=== PATIENT | female | born 1990 | race Caucasian/White ===

== ENCOUNTER 2018-03-14 01:19 | Emergency (ER) | payer OTHER, SELFPAY ==
[2018-03-14 01:32] VITALS: BP 120/80; PULSE 78; RESP 18; TEMP 36.5; O2SAT 99; BMI 28.1
[2018-03-14] MEDS: TRIMETH/SULFA 160/800 (DS) TABLET 1 TAB PO (01:40)
[2018-03-14 01:55] LABS: Bacteria Urine Few (2-10); RBC Urine 0-1/HPF (0-5/HPF); Squamous Epithelial Cell Urine 0-1 /HPF; WBC Urine 0-1/HPF (0-5/HPF)
[2018-03-14 01:56] LABS: Culture Indicated Urine Specimen Cultured
[2018-03-14] MEDS: PHENAZOPYRIDINE 100 MG PREPACK 1 BOTTLE MISC (02:03)
--- NOTE | 2018-03-14 05:39 | ED.FEMALEGU ---
HPI - Female Genitourinary General Chief complaint: Urogenital-Female Stated complaint: thinks has UTI Time Seen by Provider: 03/14/18 01:31 Source: patient Mode of arrival: ambulatory Limitations: no limitations History of Present Illness HPI Narrative: 27-year-old female, nonsmoker otherwise healthy presents with her mother and a chief complaint symptoms consistent with UTI, which she has previously had. She complains of dysuria, frequency and urgency. She denies any back pain nor fever or chills. She has no nausea, vomiting or other systemic finding. She has had UTIs in the past and states this feels similar with those MD Complaint: dysuria and UTI Onset (ago): hour(s) Location: suprapubic Severity: mild Quality: Aching and Burning Duration: constant Relieving factors: none Exacerbating factors: none Urinary symptoms: Difficulty Urinating, Dysuria and Urgency Patient : No Associated symptoms: denies other symptoms Related Data Previous Rx's Medication Instructions Recorded sulfamethoxazole-trimethoprim 1 tab PO BID 5 Days #10 tab 03/14/18 [Bactrim DS] Allergies Allergy/AdvReac Type Severity Reaction Status Date / Time amoxicillin Allergy Mild Verified 03/14/18 01:39 Review of Systems Review of Systems All systems reviewed & are unremarkable except as noted in HPI and below Constitutional Denies chills, Denies fever(s), Denies lethargy and Denies weakness Eyes Denies change in vision, Denies eye discharge, Denies irritation and Denies loss of vision ENT Ears, Nose, Mouth, and Throat: Denies change in voice, Denies neck pain and Denies sore throat Cardiovascular Denies chest pain, Denies irregular heart rhythm, Denies lightheadedness, Denies palpitations, Denies dyspnea, Denies dyspnea on exertion and Denies orthopnea Respiratory Denies cough, Denies dyspnea, Denies dyspnea on exertion and Denies wheezing Gastrointestinal Gastrointestinal: Denies abdominal pain, Denies change in bowel habits, Denies diarrhea, Denies nausea and Denies vomiting Genitourinary Denies hematuria, Reports dysuria, Denies flank pain, Denies urinary incontinence and Reports urinary urgency Musculoskeletal Denies neck pain Integumentary/Breasts Denies pruritus, Denies erythema, Denies rash and Denies wounds Neurologic Denies confusion, Denies loss of vision and Denies weakness Psychiatric Denies anxiety, Denies confusion, Denies depression, Denies homicidal ideation and Denies suicidal ideation Endocrine Denies palpitations Hematologic/Lymphatic Denies easy bruising Allergic/Immunologic Denies wheezing PFSH Social History Smoking Status: Never smoker Exam Narrative Exam Narrative: GEN: AOx3 and in mild distress EYES: Pupils are equal, round, and reactive to light and accommodation. Extraoccular muscles are intact bilaterally. There is no subconjunctival hemorrhage or exudate. CHEST: Lungs are clear to auscultation bilaterally and free of wheezes, rales, or rhonchi. Heart rate is regular rhythm, there are no murmurs, clicks, rubs, or gallops. There is no chest wall tenderness. ABD: Abdomen is soft and nontender. There is no guarding or rebound. Bowel sounds are normal in all 4 quadrants. There is no mass or organomegaly. EXT: Full painless ROM of all extremities with no loss of sensation or strength. SKIN: Warm, pink, and dry. No erythema or rash Initial Vital Signs Initial Vital Signs: Vital Signs Temperature 97.7 F 03/14/18 01:32 Pulse Rate 78 03/14/18 01:32 Respiratory Rate 18 03/14/18 01:32 Blood Pressure 120/80 03/14/18 01:32 Pulse Oximetry 99 03/14/18 01:32 Course Orders Ordered: ED Orders 03/14/18 01:38 Urine Culture Stat Urine Microscopic Stat Discontinued Medications Phenazopyridine HCl (Pyridium 100mg Prepack) 1 bottle MISC SEEINSTR ONE Stop: 03/14/18 02:02 Last Admin: 03/14/18 02:03 Dose: 1 bottle Trimethoprim/Sulfamethoxazole (Bactrim Ds) 1 tab PO NOW ONE Stop: 03/14/18 01:32 Last Admin: 03/14/18 01:40 Dose: 1 tab Vital Signs - 8 hr 03/14/18 01:32 Temperature 97.7 F Pulse Rate 78 Respiratory Rate 18 Blood Pressure 120/80 Pulse Oximetry 99 MDM - Female Genitourinary Lab Data Lab Results 03/14/18 Range/Units 01:38 Urine RBC 0-1/hpf (0-5/HPF) Urine WBC 0-1/hpf (0-5/HPF) Ur Squamous Epith Cells 0-1 /hpf Urine Bacteria Few (2-10) H (None) Ur Culture Indicated? Specimen cultured Micro UA Comment Not Reportable Point of Care Testing Test Results Negative Urine Dip Bedside Urine Glucose Negative Bedside Urine Bilirubin - Negative Bedside Urine Ketone - Negative Urine Specific [place] White 1.020 Bedside Urine Occult Blood +/- Bedside Urine pH 6.5 Bedside Urine Protein - Negative Bedside Urine Urobilinogen - Negative Bedside Urine Nitrite - Negative Bedside Urine Leukocytes +/- 15 Esterase Discharge Plan Departure Patient Disposition: Home Clinical Impression: UTI (urinary tract infection) Discharge Date/Time: 03/14/18 02:00 Interventions: ED Discharge Assessment Last Done: 03/14/18 02:11 Instructions: DI for Urinary Tract Infection (UTI) Activity Restrictions/Additional Instructions: *You have been diagnosed with [ acute UTI ] *What to do: *Take medications as directed *Follow up with your primary care provider in 2-3 days, call for an appointment. Let them know you were seen in the Emergency Department and that we ask that you be seen in follow up *Return to ER if you should have any new, worsening or concerning symptoms Prescriptions: New sulfamethoxazole-trimethoprim [Bactrim DS] 800-160 mg tablet 1 tab PO BID 5 Days Qty: 10 RF: 0
== END 2018-03-14 02:00 | disposition home or self-care (01) ==
PROVIDERS: Emergency Provider Emergency Medicine
DX: N39.0 Urinary tract infection, site not specified (principal)
CPT/HCPCS: 81003; 81015; 81025; 87077; 87086; 87186; 99282; 99283

== ENCOUNTER → 2018-07-06 16:20 | Outpatient (CLI) | payer OTHER, SELFPAY ==
[2018-07-06 19:54] LABS: HCG Quantitative /Beta subunit 212.85 mIU/mL
== END ==
PROVIDERS: PCP Physician Assistant; Visit Provider Obstetrics & Gynecology
DX: N91.2 Amenorrhea, unspecified (principal)
CPT/HCPCS: 36415; 84702

== ENCOUNTER → 2018-07-28 16:21 | Outpatient (CLI) | payer OTHER, SELFPAY ==
[2018-07-28 17:03] LABS: Add Manual Diff / Slide Review NO; Appearance Urine UA CLEAR; Basophils Absolute Auto 0 /uL (0-100); Basophils Percent Auto 0.3 % (0-2); Bilirubin Urine UA NEGATIVE (NEGATIVE); Color Urine UA YELLOW; Eosinophils Absolute Auto 100 /uL (0-450); Eosinophils Percent Auto 1.3 % (2-4); Glucose Urine UA NEGATIVE (Negative); Hematocrit 38.7 % (36-46); Hemoglobin 13.2 g/dL (12.0-16.0); Ketones Urine UA NEGATIVE (NEGATIVE); Leukocyte Esterase Urine UA NEGATIVE (NEGATIVE); Lymphocytes Absolute Auto 2400 /uL (1100-4500); Lymphocytes Percent Auto 21.4 % (25-40); Mean Corpuscular Hemoglobin 30.7 PG (26-34); Mean Corpuscular Volume 90.3 fL (80-100); Monocytes Absolute Auto 700 /uL (0-900); Monocytes Percent Auto 6.4 % (3-14); Neutrophils Absolute Auto 8000 /uL (1500-7000); Neutrophils Percent Auto 70.6 % (50-75); Nitrite Urine UA NEGATIVE (Negative); Occult Blood Urine UA NEGATIVE (Negative); Platelet Count 220 X10^3/uL (150-400); Protein Urine UA NEGATIVE (Negative); Red Blood Cell Count 4.29 X10^6/uL (4.0-5.2); Red Cell Distribution Width 12.6 % (11.6-14.8); Urobilinogen Urine UA 0.2 E.U./dL (0.2); White Blood Cell Count 11.3 X10^3/uL (4.5-11.0)
[2018-07-28 18:21] LABS: Hepatitis B Surface Antigen NEGATIVE s/c (NEGATIVE)
[2018-07-28 18:37] LABS: HIV 1 and 2 Antibody NEGATIVE (NEGATIVE); Hep C Virus Ab w/Reflex Quant NEGATIVE s/c (NEGATIVE)
[2018-07-30 14:01] LABS: RPR Screen Nonreactive (Nonreactive)
== END ==
PROVIDERS: Visit Provider Obstetrics & Gynecology
DX: Z34.91 Encounter for supervision of normal pregnancy, unspecified, first trimester (principal)
CPT/HCPCS: 36415; 80055; 81003; 86703; 86787; 86803; 86850; 86900; 86901; 87086

== ENCOUNTER → 2018-07-31 15:30 | Outpatient (CLI) | payer OTHER, SELFPAY ==
[2018-07-31 19:36] LABS: Urine N gonorrhoeae NOT DETECTED
[2018-07-31 19:39] LABS: Urine Chlamydia NOT DETECTED
== END ==
PROVIDERS: PCP Physician Assistant; Visit Provider Obstetrics & Gynecology
DX: Z34.01 Encounter for supervision of normal first pregnancy, first trimester (principal); Z3A.08 8 weeks gestation of pregnancy
CPT/HCPCS: 87491; 87591

== ENCOUNTER 2018-09-05 07:06 | Emergency (ER) | payer OTHER, SELFPAY ==
[2018-09-05 07:16] VITALS: BP 121/72; PULSE 107; RESP 18; TEMP 37.1; O2SAT 98; BMI 28.8
--- NOTE | 2018-09-05 07:20 | ED_ITS ---
HPI - General Chief complaint: OB/Uterine Contractions Stated complaint: 13 wks preg. bleeding Time Seen by Provider: 09/05/18 07:14 Source: patient Mode of arrival: ambulatory Limitations: no limitations History of Present Illness HPI Narrative: Patient is a 28-year-old female who is currently 13 weeks pr egnant presenting with some spotting. She says she worked out yesterday doing extensive lower body work. Last night she noticed a small amount of blood on this morning she noticed a blood clot when she wiped. She has no abdominal cramping. She is . Complaint: vaginal bleeding Pain Consistency: now resolved Patient : Yes Related Data Home Medications Medication Instructions Recorded Confirmed 1 tab PO DAILY 07/28/18 07/28/18 vitamin,calcium,[id number] acid tablet Previous Rx's Medication Instructions Recorded ondansetron 4 mg disintegrating 4 mg PO Q6H PRN #20 tab 09/04/18 tablet nitrofurantoin monohyd/m-cryst 100 mg PO BID #14 cap 09/05/18 [Macrobid] Allergies Allergy/AdvReac Type Severity Reaction Status Date / Time amoxicillin Allergy Mild Verified 09/05/18 07:36 Review of Systems Review of Systems ROS Unobtainable: All systems reviewed & are unremarkable except as noted in HPI and below Constitutional Denies chills, Denies fever(s), Denies lethargy and Denies weakness Eyes Denies change in vision, Denies eye discharge, Denies irritation and Denies loss of vision ENT Ears, Nose, Mouth, and Throat: Denies change in voice, Denies neck pain and Denies sore throat Cardiovascular Denies chest pain, Denies irregular heart rhythm, Denies lightheadedness, Denies palpitations, Denies dyspnea, Denies dyspnea on exertion and Denies orthopnea Respiratory Denies cough, Denies dyspnea, Denies dyspnea on exertion and Denies wheezing Gastrointestinal Gastrointestinal: Denies abdominal pain, Denies change in bowel habits, Denies diarrhea, Denies nausea and Denies vomiting Genitourinary Reports as per HPI Musculoskeletal Denies neck pain Integumentary/Breasts Denies pruritus, Denies erythema, Denies rash and Denies wounds Neurologic Denies loss of vision and Denies weakness Endocrine Denies palpitations Allergic/Immunologic Denies wheezing PMFSH - Past Medical History Medical history: Reports no medical history Patient : Yes Exam Initial Vital Signs Initial Vital Signs: Vital Signs Temperature 98.8 F 09/05/18 07:16 Pulse Rate 107 H 09/05/18 07:16 Respiratory Rate 18 09/05/18 07:16 Blood Pressure 121/72 09/05/18 07:16 Pulse Oximetry 98 09/05/18 07:16 GENERAL: Well-appearing, well-nourished and in no acute distress. HEENT: Head atraumatic,EOMI, pupils reactive, face symmetric, moist mucous membranes CARDIOVASCULAR: Regular rate and rhythm without murmurs, rubs or gallops. RESPIRATORY: Breath sounds equal bilaterally, no wheezes rales or rhonchi. ABDOMEN: Soft, nontender. Normoactive bowel sounds all 4 quadrants. No guarding or rebound. EXTREMITIES: Normal range of motion, no clubbing or edema. Neurovascularly intact NEUROLOGICAL: Alert and oriented x4.Normal gait and speech. Cranial nerves II through XII grossly intact. SKIN: Warm, dry, no laceration, no petechiae, no rashes or lesions. Course Orders Ordered: ED Orders 09/05/18 07:21 US OB <= 14 weeks fetus Stat 09/05/18 07:40 Urine Microscopic Stat 09/05/18 07:54 ABO RH Type Stat Complete Blood Count AUTO DIFF Stat Comprehensive Metabolic Panel Stat HCG Quantitative Stat Vital Signs - 8 hr 09/05/18 07:16 09/05/18 08:40 09/05/18 09:42 Temperature 98.8 F Pulse Rate 107 H 72 59 L Respiratory Rate 18 18 16 Blood Pressure 121/72 Blood Pressure [Left Arm] 104/60 102/60 Pulse Oximetry 98 97 98 MDM - OB/Uterine Contractions Lab Data Attestation: I reviewed the patient's lab results. Result diagrams: 09/05/18 07:54 09/05/18 07:54 Lab Results 09/05/18 09/05/18 09/05/18 Range/Units 07:40 07:54 07:54 WBC 9.4 (4.5-11.0) X10^3/uL RBC 4.14 (4.0-5.2) X10^6/uL Hgb 12.9 (12.0-16.0) g/dL Hct 36.4 (36-46) % MCV 87.8 (80-100) fL MCH 31.1 (26-34) PG MCHC 35.5 (30-36) % RDW 13.2 (11.6-14.8) % Plt Count 180 (150-400) X10^3/uL Neut % (Auto) 77.6 H (50-75) % Lymph % (Auto) 14.8 L (25-40) % [place] % (Auto) 6.2 (3-14) % Eos % (Auto) 1.0 L (2-4) % Baso % (Auto) 0.4 (0-2) % Neut # (Auto) 7300 H (6915-6625) /uL Lymph # (Auto) 1400 (8480-7679) /uL [place] # (Auto) 600 (0-900) /uL Eos # (Auto) 100 (0-450) /uL Baso # (Auto) 0 (0-100) /uL Sodium 138 (137-145) mmol/L Potassium 4.0 (3.4-5.1) mmol/L Chloride 104 (98-107) mmol/L Carbon Dioxide 25 (22-32) mmol/L BUN 18 H (7-17) mg/dL Creatinine 0.60 (0.52-1.04) mg/dL Estimated GFR > 60.0 (>60) mL/min BUN/Creatinine Ratio 30.0 H (6-22) Glucose 88 (70-100) mg/dL Calcium 8.8 (8.4-10.2) mg/dL Total Bilirubin 0.7 (0.2-1.3) mg/dL AST 37 H (14-36) IU/L ALT 23 (9-52) IU/L Alkaline Phosphatase 34 L (38-126) U/L Total Protein 6.8 (6.3-8.2) g/dL Albumin 4.1 (3.5-5.0) g/dL Globulin 2.7 (1.7-4.1) g/dL Albumin/Globulin Ratio 1.5 (1.0-2.8) HCG, Quant 97187 mIU/mL Urine RBC 1-5/hpf (0-5/HPF) Urine WBC 0-1/hpf (0-5/HPF) Ur Squamous Epith Cells 5-10 /hpf H (0-5/HPF) Urine Bacteria Moderate (10-30) H (None) Urine Mucus 1+ H (Negative) Ur Culture Indicated? Culture not indicate Micro UA Comment Blood Type 09/05/18 Range/Units 07:54 WBC (4.5-11.0) X10^3/uL RBC (4.0-5.2) X10^6/uL Hgb (12.0-16.0) g/dL Hct (36-46) % MCV (80-100) fL MCH (26-34) PG MCHC (30-36) % RDW (11.6-14.8) % Plt Count (150-400) X10^3/uL Neut % (Auto) (50-75) % Lymph % (Auto) (25-40) % [place] % (Auto) (3-14) % Eos % (Auto) (2-4) % Baso % (Auto) (0-2) % Neut # (Auto) (7959-7504) /uL Lymph # (Auto) (5546-5845) /uL [place] # (Auto) (0-900) /uL Eos # (Auto) (0-450) /uL Baso # (Auto) (0-100) /uL Sodium (137-145) mmol/L Potassium (3.4-5.1) mmol/L Chloride (98-107) mmol/L Carbon Dioxide (22-32) mmol/L BUN (7-17) mg/dL Creatinine (0.52-1.04) mg/dL Estimated GFR (>60) mL/min BUN/Creatinine Ratio (6-22) Glucose (70-100) mg/dL Calcium (8.4-10.2) mg/dL Total Bilirubin (0.2-1.3) mg/dL AST (14-36) IU/L ALT (9-52) IU/L Alkaline Phosphatase (38-126) U/L Total Protein (6.3-8.2) g/dL Albumin (3.5-5.0) g/dL Globulin (1.7-4.1) g/dL Albumin/Globulin Ratio (1.0-2.8) HCG, Quant mIU/mL Urine RBC (0-5/HPF) Urine WBC (0-5/HPF) Ur Squamous Epith Cells (0-5/HPF) Urine Bacteria (None) Urine Mucus (Negative) Ur Culture Indicated? Micro UA Comment Blood Type O Positive Urine Dip Bedside Urine Glucose Negative Bedside Urine Bilirubin + 1 Bedside Urine Ketone ++ 40 Urine Specific Lindsey 1.025 Bedside Urine Occult Blood +++ Bedside Urine pH 6.0 Bedside Urine Protein ++ 100 Bedside Urine Urobilinogen +/- 1mg Bedside Urine Nitrite + Positive Bedside Urine Leukocytes + 70 Esterase Imaging Data ob us: Radiologist's impression: [id number] Procedure: US OB <= 14 weeks fetus Ordering Provider: Edna Reynaga D.O. PROCEDURE: US OB <= 14 WEEKS FETUS INDICATIONS: 13 WEEKS, SPOTTING OUTSIDE/PRIOR DATING DATA: Last menstrual period (LMP): 06/03/18. LMP-based estimated date of delivery (BOB): 03/10/19. First dating scan (date and location): 07/31/18. Estimated date of delivery (BOB) from first dating scan: 03/15/19. TECHNIQUE: Real-time scanning was performed of the fetus and maternal pelvic organs, with image documentation. COMPARISON: [facility], , US OB <= 14 WEEKS FETUS, 09/02/2018, 12:18. [facility], , US OB <= 14 WEEKS FETUS, 07/31/2018, 15:45. FINDINGS: Embryo: Viable intrauterine gestation with crown-rump length of 6.2 cm correlating with a gestational age of 12 weeks 5 days. There has been appropriate interval growth. Note is made of a small perigestational hemorrhage immediately adjacent to the gestation, measuring only approximately 1.3 x 2.5 cm. Measurement variability in dating: +/- 4 weeks by LMP, +/- 7 days by mean sac diameter (use before 6 weeks gestation if crown-rump length not able to be measured), +/- 5 days by crown-rump length (up to 8 weeks 6 days gestation), +/- 7 days by crown-rump length (up to 13 weeks 6 days gestation). Maternal organs: Ovaries normal considering gestational status. Limited images through the kidneys demonstrate no hydronephrosis. IMPRESSION: Viable intrauterine gestation with a small perigestational hemorrhage measuring only 2.5 cm in maximal dimension. Appropriate interval growth. Followup anatomic survey at approximately 21 weeks gestation is recommended. Dictated by: Shakir Azevedo M.D. on 09/05/2018 at 9:41 Approved by: Shakir Azevedo M.D. on 09/05/2018 at 9:44 MDM Narrative Medical decision making narrative: Urine was an extremely small sample. Urine is positive for leukocytes and nitrates. Will treat her for UTI as well. We discussed pelvic rest, and close follow-up with OB. Discharge Plan Departure Patient Disposition: Home Clinical Impression: , threatened UTI (urinary tract infection) Qualifiers: Urinary tract infection type: acute cystitis Hematuria presence: with hematuria Qualified Code(s): N30.01 - Acute cystitis with hematuria Discharge Date/Time: 09/05/18 10:18 Interventions: ED Discharge Assessment Last Done: 09/05/18 10:18 Instructions: DI for Threatened Activity Restrictions/Additional Instructions: *YOU HAVE BEEN DIAGNOSED WITH threatened *WHAT TO DO: Bleeding under ultrasound however baby overall appears healthy. Recommend repeat ultrasound with her OB in a few weeks. Also pelvic rest until bleeding has stopped. *CONTINUE TO TAKE MEDICATIONS DIRECTED -Macrobid 100 mg twice a day for 7 days-sent to [facility] in [place] *FOLLOW UP WITH YOUR PRIMARY CARE PROVIDER IN 2-3 DAYS *RETURN TO ER IF YOU SHOULD HAVE significant cramping all large blood clots, bright red blood OR ANY NEW, WORSENING OR CONCERNING SYMPTOMS Prescriptions: New nitrofurantoin monohyd/m-cryst [Macrobid] 100 mg capsule 100 mg PO BID Qty: 14 RF: 0 No Action ondansetron 4 mg tablet,disintegrating 4 mg PO Q6H PRN (Reason: nausea and vomiting) Qty: 20 RF: 1 prenat.vits,acosta,puv-fwwv-uhmen tablet 1 tab PO DAILY RF: 0 Referrals: Annette Jauregui MD [Physician] - Keren Hammer PA-C [Primary Care Provider] -
[2018-09-05 08:07] LABS: Add Manual Diff / Slide Review NO; Basophils Absolute Auto 0 /uL (0-100); Basophils Percent Auto 0.4 % (0-2); Eosinophils Absolute Auto 100 /uL (0-450); Hematocrit 36.4 % (36-46); Hemoglobin 12.9 g/dL (12.0-16.0); Lymphocytes Absolute Auto 1400 /uL (1100-4500); Lymphocytes Percent Auto 14.8 % (25-40); Mean Corpuscular HGB Conc 35.5 % (30-36); Mean Corpuscular Hemoglobin 31.1 PG (26-34); Mean Corpuscular Volume 87.8 fL (80-100); Monocytes Absolute Auto 600 /uL (0-900); Monocytes Percent Auto 6.2 % (3-14); Neutrophils Absolute Auto 7300 /uL (1500-7000); Neutrophils Percent Auto 77.6 % (50-75); Platelet Count 180 X10^3/uL (150-400); Red Blood Cell Count 4.14 X10^6/uL (4.0-5.2); Red Cell Distribution Width 13.2 % (11.6-14.8); White Blood Cell Count 9.4 X10^3/uL (4.5-11.0)
[2018-09-05 08:21] LABS: Alanine Aminotransferase 23 IU/L (9-52); Albumin 4.1 g/dL (3.5-5.0); Albumin Globulin Ratio 1.5 (1.0-2.8); Alkaline Phosphatase 34 U/L (38-126); Aspartate Aminotransferase 37 IU/L (14-36); Bilirubin Total 0.7 mg/dL (0.2-1.3); Blood Urea Nitrogen 18 mg/dL (7-17); Calcium 8.8 mg/dL (8.4-10.2); Carbon Dioxide 25 mmol/L (22-32); Chloride 104 mmol/L (98-107); Estimated Glomerular Filt Rate > 60.0 mL/min (>60); Globulin 2.7 g/dL (1.7-4.1); Glucose 88 mg/dL (70-100); HEMOLYSIS < 15 (0-50); Sodium 138 mmol/L (137-145); Total Protein 6.8 g/dL (6.3-8.2)
[2018-09-05 08:38] LABS: Bacteria Urine Moderate (10-30); Mucus Urine 1+ (Negative); RBC Urine 1-5/HPF (0-5/HPF); Squamous Epithelial Cell Urine 5-10 /HPF (0-5/HPF); WBC Urine 0-1/HPF (0-5/HPF)
[2018-09-05 08:40] VITALS: BP 104/60; PULSE 72; RESP 18; O2SAT 97
[2018-09-05 09:02] LABS: HCG Quantitative /Beta subunit 86418 mIU/mL
[2018-09-05 09:42] VITALS: BP 102/60; PULSE 59; RESP 16; O2SAT 98
== END 2018-09-05 10:18 | disposition home or self-care (01) ==
PROVIDERS: Emergency Provider Emergency Medicine; PCP Physician Assistant
DX: O20.0 Threatened abortion (principal); N30.01 Acute cystitis with hematuria; Z3A.13 13 weeks gestation of pregnancy
CPT/HCPCS: 76801; 80053; 81003; 81015; 84702; 85025; 86900; 86901; 99283; 99284

== ENCOUNTER → 2018-10-07 14:56 | Outpatient (CLI) | payer OTHER, SELFPAY ==
[2018-10-14 10:45] LABS: AFP, Serum 64.4 ng/mL; Calc Gestational Age 17.9; Cigarette Smoker NOT GIVEN; Donated Egg NOT GIVEN; Donor Egg Age NOT GIVEN; Estriol, Free 1.27 ng/mL; Inhibin A, Dimeric 135 pg/mL; Maternal Ethnicity NOT GIVEN; Maternal Weight 188 lbs; Number of Fetuses NOT GIVEN; Previous Pregnancy Down Syndro NOT GIVEN; hCG, Serum 43.2 IU/mL
== END ==
PROVIDERS: PCP Physician Assistant; Visit Provider Obstetrics & Gynecology
DX: Z34.02 Encounter for supervision of normal first pregnancy, second trimester (principal); Z36.0 Encounter for antenatal screening for chromosomal anomalies
CPT/HCPCS: 36415; 82105; 82677; 84702; 86336

== ENCOUNTER → 2018-11-03 14:44 | Outpatient (CLI) | payer OTHER, SELFPAY ==
--- NOTE | 2018-11-03 14:46 | DI.US.S_ITS ---
PROCEDURE: US OB >= 14 WEEKS FETUS INDICATIONS: ANATOMY SCAN OUTSIDE/PRIOR DATING DATA: Last menstrual period (LMP): 06/03/18. LMP-based estimated date of delivery (BOB): 03/10/19 First dating scan (date and location): 07/31/18. Estimated date of delivery (BOB) from first dating scan: 03/16/19. TECHNIQUE: Real-time scanning was performed of the fetus, with image documentation and biometric measurements. Endovaginal scanning: Not performed COMPARISON: [facility], , OB >= 14 WEEKS FETUS, 10/07/2018, 14:43. FINDINGS: General: A single living intrauterine gestation is present. Presentation: Variable Placenta: Placental position is anterior, without previa. Amniotic fluid index: 15.8 cm, normal range is 5-24 cm. heart rate: 140 beats per minute. Maternal cervical canal: 3.5 cm long. Normal lower limit is 2.5 cm. biometrics: Biparietal diameter: 5.1 cm, 21 weeks 3 days. Head circumference: 18.6 cm, 21 weeks zero day. Abdominal circumference: 16.4 cm, 21 weeks 3 days Femur length: 3.4 cm, 20 weeks 6 days Estimated gestational age from initial scan: 21 weeks zero day Composite gestational age from present scan: 21 week one day Estimated weight and percentile: 403 g, 53% Measurement variability for biometric dating: +/- 7 days from 14 weeks to 15 weeks 6 days gestation, +/- 10 days from 16 weeks to 21 weeks 6 days gestation, +/- 2 weeks from 22 weeks to 27 weeks 6 days gestation, +/- 3 weeks for 28 weeks gestation or later. weight reference: 4500 g or EFW >90/95% is considered macrosomia or large for gestational age. EFW <10% is small for gestational age. EFW 5% or less is considered intra-uterine growth restriction. Anatomic survey: Neuro: Ventricles are non-dilated at less than 10 mm. Cisterna magna is normal at 3-11 mm. Cerebellum is normal in size and morphology. Nuchal skin fold: Normal at less than 6 mm between 14-21 weeks gestational age. Face: Nose and lips, facial profile are normal. Spine: No evidence for spina bifida. Heart: 4-chambered heart is present, with normal ventricular outflow tracts. Diaphragm: Diaphragm is intact. Stomach: Left-sided stomach is present. Kidneys: No hydronephrosis. Normal is less than 5 mm in 2nd trimester, less than 7 mm in 3rd trimester. Cord: 3-vessel cord has orthotopic insertion. Bladder: Normal in size. Extremities: All 4 extremities identified. IMPRESSION: Single live intrauterine with normal anatomic survey. Dictated by: Russell Rodriguez M.D. on 11/03/2018 at 17:08 Approved by: Russell Rodriguez M.D. on 11/03/2018 at 17:11
== END ==
PROVIDERS: PCP Physician Assistant; Visit Provider Obstetrics & Gynecology
DX: Z34.02 Encounter for supervision of normal first pregnancy, second trimester (principal)
CPT/HCPCS: 76811

== ENCOUNTER → 2018-12-07 16:01 | Outpatient (CLI) | payer OTHER, SELFPAY ==
[2018-12-07 17:52] LABS: GTT (PREG) 1 Hour PP 50gm Dose 143 mg/dL (76-139)
[2018-12-07 17:59] LABS: Hemoglobin 12.4 g/dL (12.0-16.0)
== END ==
PROVIDERS: PCP Physician Assistant; Visit Provider Obstetrics & Gynecology
DX: Z34.02 Encounter for supervision of normal first pregnancy, second trimester (principal); Z3A.26 26 weeks gestation of pregnancy
CPT/HCPCS: 36415; 82950; 85014; 85018

== ENCOUNTER → 2018-12-10 07:31 | Outpatient (CLI) | payer OTHER, SELFPAY ==
[2018-12-10 08:59] LABS: Glucose Fasting Gestational 88 mg/dL (76-95)
[2018-12-10 09:46] LABS: Glucose 1 Hour Gest 136 mg/dL (76-180)
[2018-12-10 10:30] LABS: Glucose 2 Hour Gest 87 mg/dL (76-155)
[2018-12-10 10:58] LABS: Glucose Tol Interp,Gestational INTERPRETATION
[2018-12-10 12:11] LABS: Glucose 3 Hour Gest 95 mg/dL (76-140)
== END ==
PROVIDERS: PCP Physician Assistant; Visit Provider Obstetrics & Gynecology
DX: R73.09 Other abnormal glucose (principal)
CPT/HCPCS: 36415; 82951; 82952

== ENCOUNTER 2019-01-03 14:21 | Emergency (ER) | payer OTHER, SELFPAY ==
[2019-01-03 14:29] VITALS: BP 103/68; PULSE 85; RESP 16; TEMP 36.1; O2SAT 100; BMI 31.0
--- NOTE | 2019-01-03 15:36 | ED.SKABFB ---
HPI - Skin/Abscess/Foreign Bdy <CAROLYN Barnhart - Last Filed: 01/03/19 23:57> General Chief complaint: Skin/Abscess/Foreign Body Stated complaint: cyst on tale bone/ Time Seen by Provider: 01/03/19 14:51 Source: patient Mode of arrival: Ambulatory Limitations: no limitations History of Present Illness HPI narrative: This is a 28-year-old female, former smoker, currently and about 7 month EGA, presents to ED with her spouse with chief complain tailbone cyst. Patient had a history of significant pilonidal cyst which had been drained but had system it infection from it about a year ago. Patient had a consultation with the general surgeon in the past but decided not to do surgery due to this had been already healed by the time seen surgeon. Initial cyst noticed 3 in days ago had noticed doubled in size and worsening pain. She has been using hot compress on affected site which has been helping with discomfort. Patient denies fever, chills, nausea or vomiting or drainage from the site. Patient has difficult time sitting due to discomfort and has been laying on her side. Patient states she has a varicose vein from vaginal area down to her leg and had been sitting on a chair with leg elevated last several weeks more than usual. LMP 06/03/18 . Patient denies vaginal bleeding or abdominal pain and has been feeling her movements as usual. Related Data Home Medications Medication Instructions Recorded Confirmed prenat.vits,acosta,mpf-yqqk-ztvzz 1 tab PO DAILY 07/28/18 07/28/18 Previous Rx's Medication Instructions Recorded ondansetron 4 mg disintegrating 4 mg PO Q6H PRN #20 tab 09/04/18 tablet nitrofurantoin monohyd/m-cryst 100 mg PO BID #14 cap 09/05/18 [Macrobid] oxycodone-acetaminophen 5 mg-325 1 tab PO Q4-6H PRN #20 tab 10/07/18 mg tablet Double Electric breast Pump and #1 each 11/02/18 Supplies cephalexin [Keflex] 500 mg PO Q6H 7 Days #28 cap 01/03/19 Allergies Allergy/AdvReac Type Severity Reaction Status Date / Time amoxicillin Allergy Mild Verified 01/03/19 14:29 Review of Systems <CAROLYN Barnhart - Last Filed: 01/03/19 23:57> Review of Systems Narrative: General: Denies fever, chills, fatigue, malaise, sweats. HEENT: Denies sinus pain, ear pain, sore throat, difficulty swallowing, dizziness. Respiratory: Denies dyspnea, cough, wheezing, hemoptysis, sputum. Cardiovascular: Denies chest pain, palpitations, orthopnea, edema. Gastrointestinal: Denies nausea, vomiting, abdominal pain, diarrhea, constipation, melena. : Denies dysuria, frequency, incontinence, hematuria, urinary retention. Musculoskeletal: Denies weakness, joint pain or bony pain. Skin: See HPI Neurologic: Denies weakness, headache, numbness, change in speech, confusion, seizures, incoordination. Psychiatric: No concerning psychosocial issues. 12-point review of systems is negative except for those stated above. Patient History <CAROLYN Barnhart - Last Filed: 01/03/19 23:57> Medical History Pilonidal cyst (Acute) Surgical History No pertinent past surgical history (Acute) Social History Smoking Status: Former smoker Substance Use Type: does not use Exam <CAROLYN Barnhart - Last Filed: 01/03/19 23:57> Narrative Exam Narrative: General appearance: well developed, well nourished, in no acute distress. Head: normocephalic, atraumatic, no scalp lesions, non-tender. Eye: pupil equal, round. EOMI. Nose: nares patent. Oral: mucosa moist. Neck/Thyroid: neck supple, full range of motion, no visible masses. Skin: Indurated erythematous lesion on cleft of the buttock extending to right side buttock, approximate 3 cm in size with moderate erythema and warmth. No suspicious rashes, lesions over other visible areas. Warm and dry. Heart: no clubbing, no cyanosis, no edema. Lungs: Breathing even and unlabored. No stridor. No accessory muscles used. Chest: normal shape and expansion. Abdomen: non-obese, non-distended. Neurologic: alert and oriented. Cognitive exam, COAL CUTTER and PNS grossly intact on informal exam. Psych: good eye contact, normal affect. Initial Vital Signs Initial Vital Signs: Vital Signs Temperature 97.0 F L 01/03/19 14:29 Pulse Rate 85 01/03/19 14:29 Respiratory Rate 16 01/03/19 14:29 Blood Pressure 103/68 01/03/19 14:29 Pulse Oximetry 100 01/03/19 14:29 <Pat Fleming DO - Last Filed: 01/08/19 18:09> Initial Vital Signs Initial Vital Signs: Vital Signs Temperature 97.0 F L 01/03/19 14:29 Pulse Rate 85 01/03/19 14:29 Respiratory Rate 16 01/03/19 14:29 Blood Pressure 103/68 01/03/19 14:29 Pulse Oximetry 100 01/03/19 14:29 Procedures <CAROLYN Barnhart - Last Filed: 01/03/19 23:57> Abscess I/D Site: other (R side buttock/cleft of the buttock) Side (if applicable): right Local Anesthetic: lidocaine 1% and with epi Amount of anesthesia used (mL): 5.5 Technique: incised with #11 blade Amount of fluid expressed (mL): 10 Irrigation: Yes Packing used?: plain Complications: other (none) Scores <ED BarnhartP - Last Filed: 01/03/19 23:57> GCS Timoteo coma scale eye opening: Spontaneous Timoteo coma scale verbal response: Orientated Timoteo coma scale motor response: Obey commands Timoteo coma scale total score: 15 Course <CAROLYN Barnhart - Last Filed: 01/03/19 23:57> Orders Ordered: Discontinued Medications Lidocaine/Sodium Bicarbonate (Buffered Lidocaine 10 Ml Syr) 10 ml INJ NOW ONE Stop: 01/03/19 15:37 Last Admin: 01/03/19 15:53 Dose: 10 ml Documented by: WU Vital Signs Vital signs: Vital Signs - 8 hr 01/03/19 16:48 Pulse Rate 72 Respiratory Rate 18 Blood Pressure [Right Arm] 109/64 <Pat Fleming DO - Last Filed: 01/08/19 18:09> Orders Ordered: Discontinued Medications Lidocaine/Sodium Bicarbonate (Buffered Lidocaine 10 Ml Syr) 10 ml INJ NOW ONE Stop: 01/03/19 15:37 Last Admin: 01/03/19 15:53 Dose: 10 ml Documented by: WU Vital Signs Vital signs: Vital Signs - 8 hr 01/03/19 16:48 Pulse Rate 72 Respiratory Rate 18 Blood Pressure [Right Arm] 109/64 MDM - Skin/Abscess/Foreign Bdy <Ned Annalise-CAROLYN Hoang - Last Filed: 01/03/19 23:57> Differential Diagnosis Differential diagnosis: Likely abscess of skin or subcutaneous tissue, cellulitis and other (Pilonidal cyst) Medical Records Attestation: I reviewed the patient's medical records. [facility] Narrative Medical decision making narrative: This is a 28-year-old female presents to ED with pilonidal cyst for last 3 days. Patient denies constitutional symptoms but had a history of systemic infection from pilonidal cyst about and a year ago after it had drained. The patient and spouse is concerned for another infection during her . I&D procedure has completed today and obtained moderate amount of purulent discharge mixed with blood. Wound culture was obtained. Please see procedural note. Patient tolerated well. Given patient's history of systemic infection from pilonidal cyst and it is decided to treat her with antibiotic medication. Patient informed delayed antibiotic medication treatment versus start Keflex to today. Patient's spouse is comfortable repacking the wound and home supply has been provided. Patient advised frequent warm pack and use mkhi-[id number] Tylenol for discomfort. Return precautions were discussed and advised to follow up with Dr. Jauregui in 2 days as scheduled for wound recheck as well as her follow-up. Patient verbalized understanding and agrees with treatment plan. Also discussed request a referral to general surgeon if patient has recurring pilonidal cyst. Discharge Plan Departure Patient Disposition: Home Clinical Impression: Pilonidal cyst with abscess Discharge Date/Time: 01/03/19 16:49 Instructions: DI for Pilonidal Cyst Drainage and Removal Activity Restrictions/Additional Instructions: You have been diagnosed with [pilonidal cyst and incision and drainage has been done. Wound culture was obtained. You will get a phone call if you need different type of antibiotic medication]. What to do: *Take your medications as directed. You can start Keflex 500 mg 4 times a day dose for 7 days. You can take ejol-lhv-[id number] Tylenol up to 4000 mg over 24 hr period if there is fever or discomfort. *Follow up with your primary care provider in 2-3 days, call for an appointment. Please follow up with Dr. Jauregui on Friday as scheduled and request wound recheck. Please repacked wound every 1-2 days as needed and reinforced dressing and change it as needed. Let them know you were seen in the ED and that we asked you to be seen in follow up. *Return to ED if you have any new, worsening, or concerning symptoms, such as [fever, increasing redness/swelling/warmth, nausea or vomiting, feeling like fainting, chest pain, breathing difficulty, or any acute concerns]. Prescriptions: New cephalexin [Keflex] 500 mg capsule 500 mg PO Q6H 7 Days Qty: 28 RF: 0 No Action ondansetron 4 mg tablet,disintegrating 4 mg PO Q6H PRN (Reason: nausea and vomiting) Qty: 20 RF: 1 (DME) Double Electric breast Pump and Supplies 0 .ROUTE .MEDSUPPLY Qty: 1 RF: 0 prenat.vits,acosta,rjz-kpxf-onubg tablet 1 tab PO DAILY RF: 0 oxycodone-acetaminophen [Percocet] 5-325 mg tablet 1 tab PO Q4-6H PRN (Reason: pain) Qty: 20 RF: 0 nitrofurantoin monohyd/m-cryst [Macrobid] 100 mg capsule 100 mg PO BID Qty: 14 RF: 0 Referrals: Nellie Sue DO [Primary Care Provider] - Stand Alone Forms: Work Release Note
[2019-01-03] MEDS: LIDO 1%/SOD BICARB 8.4% (10ML) 10 ML SYRINGE INJ (15:53)
[2019-01-03 16:48] VITALS: BP 109/64; PULSE 72; RESP 18
== END 2019-01-03 16:49 | disposition home or self-care (01) ==
PROVIDERS: Emergency Provider Nurse Practitioner Family; PCP Family Medicine
DX: L05.01 Pilonidal cyst with abscess (principal); O26.899 Other specified pregnancy related conditions, unspecified trimester
CPT/HCPCS: 10060; 87070; 87075; 87077; 87205; 99282; 99283

== ENCOUNTER → 2019-02-09 11:55 | Outpatient (CLI) | payer OTHER, SELFPAY ==
[2019-02-10 14:41] LABS: Strep Grp B PCR NEG for Grp B Strep
== END ==
PROVIDERS: PCP Family Medicine; Visit Provider Specialist
DX: Z34.03 Encounter for supervision of normal first pregnancy, third trimester (principal); Z3A.35 35 weeks gestation of pregnancy
CPT/HCPCS: 87653

== ENCOUNTER 2019-02-24 11:20 | Outpatient (CLI) | payer OTHER, SELFPAY | END 2019-02-24 12:20 | disposition home or self-care (01) | LOC: LABOR 11:43 → OB 04-26 09:38 | PROVIDERS: PCP Family Medicine; Visit Provider Obstetrics & Gynecology | DX: Z34.03 Encounter for supervision of normal first pregnancy, third trimester (principal); Z3A.37 37 weeks gestation of pregnancy | CPT/HCPCS: 59025; G0378; G0379 ==

== ENCOUNTER 2019-03-02 18:42 | Observation (INO) | payer OTHER, SELFPAY | END 2019-03-02 21:56 | disposition home or self-care (01) | LOC: LABOR 18:47 | PROVIDERS: Admitting Provider Obstetrics & Gynecology; PCP Family Medicine; Visit Provider Obstetrics & Gynecology | DX: Z34.03 Encounter for supervision of normal first pregnancy, third trimester (principal); Z3A.39 39 weeks gestation of pregnancy | CPT/HCPCS: 59025; 59050; G0378; G0379 ==

== ENCOUNTER 2019-03-03 21:49 | Observation (INO) | payer OTHER, SELFPAY | END 2019-03-04 02:00 | disposition home or self-care (01) | PROVIDERS: Admitting Provider Family Medicine; PCP Family Medicine; Visit Provider Family Medicine | DX: O26.893 Other specified pregnancy related conditions, third trimester (principal); M54.6 Pain in thoracic spine; Z3A.38 38 weeks gestation of pregnancy | CPT/HCPCS: 59050; G0378; G0379 ==

== ENCOUNTER 2019-03-08 06:36 | Inpatient (IN) | payer OTHER, SELFPAY ==
[2019-03-08 08:17] VITALS: BP 120/75
[2019-03-08 08:35] LABS: Add Manual Diff / Slide Review NO; Basophils Absolute Auto 0 /uL (0-100); Basophils Percent Auto 0.3 % (0-2); Eosinophils Absolute Auto 100 /uL (0-450); Hematocrit 36.7 % (36-46); Hemoglobin 12.7 g/dL (12.0-16.0); Lymphocytes Absolute Auto 2300 /uL (1100-4500); Lymphocytes Percent Auto 21.6 % (25-40); Mean Corpuscular HGB Conc 34.6 % (30-36); Mean Corpuscular Hemoglobin 30.6 PG (26-34); Mean Corpuscular Volume 88.5 fL (80-100); Monocytes Absolute Auto 600 /uL (0-900); Neutrophils Absolute Auto 7600 /uL (1500-7000); Neutrophils Percent Auto 71.1 % (50-75); Platelet Count 152 X10^3/uL (150-400); Red Blood Cell Count 4.15 X10^6/uL (4.0-5.2); Red Cell Distribution Width 13.3 % (11.6-14.8); White Blood Cell Count 10.7 X10^3/uL (4.5-11.0)
[2019-03-08] MEDS: LACTATED RINGERS 1,000 ML 100 ML IV ×2 (08:38→16:39)
[2019-03-08] MEDS: OXYTOCIN PREMIX 30 UNIT/500 ML PLAST..BAG IV (08:38)
--- NOTE | 2019-03-08 18:55 | PM.OBHP.1 ---
OB HPI Date/Time Date of admission: 03/08/19 Date Patient Seen: 03/08/19 Time Patient Seen: 07:30 History of Present Condition Chief complaint: MATERNITY : 1 Para: 0 Estimated Date of Delivery: 03/11/19 Estimated Gestational Age (weeks): 39+4 Narrative: Kumar Mccoy is a 28 year old female 1 para 0 at 39-,4/7 weeks gestation for induction of labor Patient is already dilated to 5 cm Indications Indication for induction OB: maternal discomfort History of Present care: good care, initiated at week # (8), number of visits (12) and pounds weight gain (38) Dating criteria: LMP confirmed by 1st trimester US Ultrasounds: normal 1st trimester US and normal mid trimester US Obstetrical complications: none Medical complications: none Preadmission Labs Blood type: O (+) positive -: Antibody screen: negative, GBS status: negative, HBsAG: negative, HIV: negative and RPR/VDLR: negative -: Chlamydia screen: not detected and Gonorrhea screen: not detected -: Rubella: immune and Varicella: immune HCT: 36 HCAB: negative Quad screen: Normal Urine: Negative 1 hr GTT: 143 3 hr GTT: 1 hr (136), 2 hr (87) and 3 hr (95) Fasting blood glucose: 88 Evaluation Evaluation Baseline heart rate: 155 Variability: Moderate (11-25) monitor accelerations: Present monitor decelerations: Absent Category of Tracing: I Cervical dilation (cm): 5 Cervical effacement (%): 85 station: -1 Laboratory results: Laboratory Tests 03/08/19 03/08/19 07:45 07:45 WBC 10.7 RBC 4.15 Hgb 12.7 Hct 36.7 MCV 88.5 MCH 30.6 MCHC 34.6 RDW 13.3 Plt Count 152 Neut % (Auto) 71.1 Lymph % (Auto) 21.6 L Lea % (Auto) 6.0 Eos % (Auto) 1.0 L Baso % (Auto) 0.3 Neut # (Auto) 7600 H Lymph # (Auto) 2300 Lea # (Auto) 600 Eos # (Auto) 100 Baso # (Auto) 0 Blood Type O Positive Antibody Screen Negative PFSH Social History marital status: household members: spouse and other occupational status: employed Smoking Status: Never smoker alcohol intake: never substance use type: does not use Meds Home Medications and Allergies Home Medications Medication Instructions Recorded Confirmed Type prenat.vits,acosta,qcs-ldnb-anjgo 1 tab PO DAILY 07/28/18 03/08/19 History ondansetron 4 mg disintegrating 4 mg PO Q6H PRN #20 tab 09/04/18 03/08/19 Rx tablet Double Electric breast Pump and #1 each 11/02/18 03/08/19 Rx Supplies Allergies Allergy/AdvReac Type Severity Reaction Status Date / Time amoxicillin Allergy Mild Verified 03/08/19 07:42 Exam Vital Signs (past 8 hours): Generally: No acute distress Lungs: Clear to auscultation bilaterally Cardiovascular: Regular rate and rhythm Fundal height: 40 cm Estimated weight: 8-1/2 lb Extremities: Trace edema, 1+ DTRs Objective Labs Result Diagrams: 03/08/19 07:45 Labs: Laboratory Results - last 24 hr 03/08/19 03/08/19 07:45 07:45 WBC 10.7 RBC 4.15 Hgb 12.7 Hct 36.7 MCV 88.5 MCH 30.6 MCHC 34.6 RDW 13.3 Plt Count 152 Neut % (Auto) 71.1 Lymph % (Auto) 21.6 L Lea % (Auto) 6.0 Eos % (Auto) 1.0 L Baso % (Auto) 0.3 Neut # (Auto) 7600 H Lymph # (Auto) 2300 Lea # (Auto) 600 Eos # (Auto) 100 Baso # (Auto) 0 Blood Type O Positive Antibody Screen Negative Assessment and Plan Assessment and Plan Assessment and Plan narrative: Assessment: 28-year-old 1 para 0 at 39-,4/7 weeks gestation for induction of labor due to advanced cervical dilation Plan: Pitocin per protocol 2 Epidural as necessary Expected management to spontaneous vaginal delivery
--- NOTE | 2019-03-08 19:03 | PM.OBPRVD ---
 Events: No Care Labor & Delivery Delivery date: 03/08/19 Cervical ripening method: none Induction method: per pitocin protocol Delivery augmentation: rupture of membranes Delivery monitor: external FHT and external uterine Route of delivery: Episiotomy description: None L&D Laceration Description: Vaginal - 1st Degree Delivery repair: chromic Estimated blood loss (mL): 100 Anesthesia type: Epidural Complications: None Narrative: Patient complete and pushed for 40 minutes. At 6:08 p.m., a live female infant delivered spontaneously in the JENNY presentation. No nuchal cord. The remainder of the body delivered without difficulty and was placed on mom's abdomen. The cord was double clamped and cut once it stopped pulsing. Cord bloods were obtained. Pitocin was given in the IV fluids. The placenta delivered intact with a 3 vessel cord at 6:23 p.m.. A first-degree vaginal laceration and a small right superficial labial laceration were repaired with 3 0 chromic. Hemostasis was achieved. Estimated blood loss 100 cc. Apgars 9 at 1 minute and 9 at 5 minutes. Epidural analgesia. . Mom and stable to recovery. Plan for aftercare: To routine care
[2019-03-08] MEDS: OXYTOCIN PREMIX 30 UNIT/500 ML PLAST..BAG 500 UNIT IV (19:12)
[2019-03-08] MEDS: IBUPROFEN 600 MG TABLET PO (21:55)
[2019-03-09 06:55] LABS: Hematocrit 34.4 % (36-46); Hemoglobin 11.8 g/dL (12.0-16.0)
[2019-03-09] MEDS: DOCUSATE 100 MG CAPSULE PO (08:16)
[2019-03-09] MEDS: IBUPROFEN 600 MG TABLET PO (08:16)
[2019-03-09] MEDS: PRENATAL VIT,CALC/IRON/FOLIC 1 TABLET 1 TAB PO (08:16)
--- NOTE | 2019-03-09 13:37 | PM.OBDS.1 ---
Discharge Providers Provider Date of admission: 03/08/19 06:36 Discharge Date: 03/09/19 Primary care physician: Nellie Sue DO Consults: 03/09/19 19:05 Consult to Transmission Systems Operator Routine Comment: Discharge provider: Annette Jauregui MD Summary Hospital Course Date Patient Seen: 03/09/19 Time Patient Seen: 13:37 Procedures: Epidural analgesia Spontaneous vaginal delivery First-degree laceration and repair Artificial rupture of membranes Hospital Course: Patient is a 28-year-old 1 para 1 who presented for induction of labor on March 08, 2019. She was started on Pitocin. She had artificial rupture of membranes and then received an epidural for pain management. She progressed to complete dilation and had a spontaneous vaginal delivery without complication. She had a first-degree laceration which was repaired. Her course was unremarkable and she is discharged home on day # 1. Peripartum Data Delivery Method: Natural Vaginal Laceration description: Vaginal - 1st Degree Episiotomy description: None Procedures: Artificial rupture of membrane Spontaneous vaginal delivery Epidural analgesia First-degree laceration and repair complications: none Status at Discharge Cognitive/behavioral status at discharge: oriented Functional status at discharge: independent ambulation Overall status at discharge: patient is progressing back to baseline Time Spent with Patient Time attestation: Total time spent providing and/or coordinating discharge services: Objective Labs Result Diagrams: 03/09/19 06:28 Labs: Laboratory Results - last 24 hr 03/09/19 06:28 Hgb 11.8 L Hct 34.4 L Exam Vital Signs (past 8 hours): Generally: Patient is sitting up in bed, holding , no acute distress Fundus: Firm at U -1 Extremities: Trace edema, negative Homans Discharge Plan Discharge Plan Patient Disposition: Home Discharge comment: Call with fever, chills, or bleeding more than a pad in an hour Discharge orders & Medications Prescriptions: Continued prenat.vits,acosta,glj-auaf-hqpem tablet 1 tab PO DAILY RF: 0 Discontinued ondansetron 4 mg tablet,disintegrating 4 mg PO Q6H PRN (Reason: nausea and vomiting) Qty: 20 RF: 1 No Action (DME) Double Electric breast Pump and Supplies 0 .ROUTE .MEDSUPPLY Qty: 1 RF: 0 Follow up/Referrals: Malone,MD Katelin [Physician] - 6 Weeks Diet/Activity/Treatments Diet: Regular Activity: No intercourse Skin/Wound/Dressing Care Report to your healthcare provider any signs of infection, such as:: chills, fever and increased pain Visit Report/Discharge Packet Instructions: DI for Labor and Delivery, Vaginal Discharge Data Primary Care Provider: Nellie Sue
[2019-03-09 17:24] VITALS: BP 123/76; PULSE 75; RESP 16; TEMP 36.9
== END 2019-03-09 18:00 | disposition home or self-care (01) | DRG 807 ==
PROVIDERS: Admitting Provider Obstetrics & Gynecology; PCP Family Medicine; Visit Provider Obstetrics & Gynecology
DX: O26.813 Pregnancy related exhaustion and fatigue, third trimester (principal); Z37.0 Single live birth; Z3A.39 39 weeks gestation of pregnancy; O70.0 First degree perineal laceration during delivery
CPT/HCPCS: 01967; 36415; 59050; 59400; 85014; 85018; 85025; 86850; 86900; 86901; G0379; J2590

== ENCOUNTER → 2019-03-12 12:04 | Outpatient (CLI) | payer OTHER, SELFPAY ==
--- NOTE | 2019-03-12 12:06 | DI.US.S_ITS ---
PROCEDURE: US PERIPH VENOUS LOW EXTREM RT INDICATIONS: EVALUATE FOR DVT TECHNIQUE: Real-time imaging, as well as color and pulse Doppler interrogation, were performed of the lower extremity deep veins from the inguinal ligament to the popliteal fossa. COMPARISON: None. FINDINGS: The common femoral, femoral and popliteal veins are normally compressible, and free of intraluminal thrombus. Color and pulse Doppler demonstrate normal phasic intraluminal flow. There is normal augmentation response to distal compression maneuver. However, there is enlargement involving one of the subcutaneous veins along the medial aspect of the right knee, which is occluded with intraluminal thrombus. No extension into the deep venous system is evident. IMPRESSION: 1. No evidence of right lower extremity deep vein thrombosis. 2. Superficial thrombophlebitis of a subcutaneous vein along the medial aspect of the knee. No extension into the deep vein system. Dictated by: Samm Ennis M.D. on 03/12/2019 at 12:20 Approved by: Samm Ennis M.D. on 03/12/2019 at 12:23
== END ==
PROVIDERS: PCP Family Medicine; Visit Provider Student in an Organized Health Care Education/Training Program
DX: O87.0 Superficial thrombophlebitis in the puerperium (principal); R60.0 Localized edema
CPT/HCPCS: 93971

== ENCOUNTER 2019-04-19 13:58 | Day surgery (SDC) | payer OTHER, SELFPAY ==
[2019-04-16 15:19] VITALS: BMI 30.2
[2019-04-19] VITALS (8 sets, daily range): BP systolic 102–117; BP diastolic 58–73; PULSE 43–65; RESP 10–17; TEMP 36.6–36.9; O2SAT 96–100; BMI 29.7
[2019-04-19] MEDS: LACTATED RINGERS 1,000 ML 42 ML IV ×2 (14:47→17:54)
--- NOTE | 2019-04-19 16:32 | PM.PREOP ---
Pre-operative Note Interval Note History & Physical reviewed/Exam performed by Physician: Yes Changes to H&P: No
[2019-04-19] MEDS: CEFAZOLIN 2 GM/100 ML FROZ.PIGGY IV (16:50)
[2019-04-19] MEDS: CLINDAMYCIN 900 MG/50 ML PIGGYBACK 50 MG IV (16:58)
--- NOTE | 2019-04-19 17:21 | SUR.OPER ---
Prone on padded OR bed, head in foam head support, gel chest rolls, gel pad under knees, pillow under lower legs, toes free of pressure, arms secured on padded arm boards at <90 degrees abduction. Safety belt at thigh.
[2019-04-19] MEDS: BUPIVACAINE 0.5% W/ EPI (PF) 10 ML VIAL 30 ML INJ (17:28)
[2019-04-19] MEDS: BACITRACIN 28 GM OINT 1 APPLIC TOP (17:29)
--- NOTE | 2019-04-19 18:01 | PM.OP.1 ---
Operative Date/Time/Diagnoses Date of procedure: 04/19/19 Time of procedure: 18:00 Pre-op diagnosis: Pilonidal cyst Post-op diagnosis: same Procedure & Clinicians Procedure: Excision with primary closure and movement of tissues across midline Same procedure as scheduled: Yes Indications: Chronic pilonidal cyst Surgeon: Brian Miller Anesthesia Type: General Operative Notes Findings: Pilonidal cyst. Minimal induration. Closure Type: primary Specimen(s): other (Pilonidal cyst) Prosthetic devices, grafts, tissues, transplants, or devices: None Estimated Blood Loss (mL): 15 Blood products transfused: none Procedure in detail: The patient was placed maryjane-knife prone on the operating room table after undergoing general endotracheal anesthesia. She was padded appropriately. Prepped and draped in the usual fashion. At outlined the area of induration over coccyx. Made an elliptical incision to the right of midline to encompass the indurated area. This this was carried down to the level of the coccyx. The area was excised. Hemostasis was achieved. The wound was irrigated. The left subcu fat was incised along the lengthy incision to allow for mobility of the skin. The deep this thin tissues were closed in multiple layers with interrupted 3 0 and 2 0 Vicryl sutures. The skin was partially reapproximated with 4 0 interrupted Vicryl dermal sutures and followed by 3 0 nylon vertical mattress sutures. Antibiotic ointment dressing was applied. Patient was placed back on her stretcher extubated and taken recovery area in good condition. Complications: none Post-operative Condition: stable Disposition: PACU Plan for aftercare: Follow-up in the office
[2019-04-19] MEDS: ONDANSETRON 4 MG/2 ML INJ IV (19:03)
[2019-04-19] MEDS: OXYCODONE/ACETAMINOPHEN 5/325 TABLET 1 TAB PO (19:04)
== END 2019-04-19 19:14 | disposition home or self-care (01) ==
PROVIDERS: PCP Family Medicine; Referring Provider Family Medicine; Visit Provider Specialist
PROC: (CPT 11771; principal; 2019-04-19 15:45)
DX: L05.91 Pilonidal cyst without abscess (principal)
CPT/HCPCS: 11771; J0330; J0690; J1100; J1885; J2250; J2405; J2704; J3010

== ENCOUNTER → 2020-08-21 10:56 | Outpatient (CLI) | payer OTHER, SELFPAY ==
[2020-08-21 12:00] LABS: Add Manual Diff / Slide Review NO; Basophils Absolute Auto 0 /uL (0-100); Basophils Percent Auto 0.6 % (0-2); Eosinophils Absolute Auto 200 /uL (0-450); Eosinophils Percent Auto 3.1 % (2-4); Hemoglobin 14.8 g/dL (12.0-16.0); Lymphocytes Absolute Auto 2100 /uL (1100-4500); Lymphocytes Percent Auto 27.7 % (25-40); Mean Corpuscular HGB Conc 33.5 % (30-36); Mean Corpuscular Hemoglobin 29.8 PG (26-34); Mean Corpuscular Volume 88.9 fL (80-100); Monocytes Absolute Auto 500 /uL (0-900); Monocytes Percent Auto 7.2 % (3-14); Neutrophils Absolute Auto 4700 /uL (1500-7000); Neutrophils Percent Auto 61.4 % (50-75); Platelet Count 243 X10^3/uL (150-400); Red Blood Cell Count 4.95 X10^6/uL (4.0-5.2); Red Cell Distribution Width 13.2 % (11.6-14.8); White Blood Cell Count 7.6 X10^3/uL (4.5-11.0)
[2020-08-21 12:21] LABS: Alanine Aminotransferase 19 IU/L (<35); Albumin 4.5 g/dL (3.5-5.0); Albumin Globulin Ratio 1.5 (1.0-2.8); Alkaline Phosphatase 44 U/L (38-126); Aspartate Aminotransferase 24 IU/L (14-36); Bilirubin Total 0.6 mg/dL (0.2-1.3); Blood Urea Nitrogen 17 mg/dL (7-17); Calcium 9.4 mg/dL (8.4-10.2); Carbon Dioxide 29 mmol/L (22-32); Chloride 102 mmol/L (98-107); Estimated Glomerular Filt Rate > 60.0 mL/min (>60); Glucose 72 mg/dL (70-100); HEMOLYSIS < 15 (0-50); Potassium 4.1 mmol/L (3.4-5.1); Sodium 139 mmol/L (137-145); Total Protein 7.5 g/dL (6.3-8.2)
== END ==
PROVIDERS: PCP Registered Nurse; Referring Provider Registered Nurse; Visit Provider Registered Nurse
DX: Z30.40 Encounter for surveillance of contraceptives, unspecified (principal); Z97.5 Presence of (intrauterine) contraceptive device
CPT/HCPCS: 36415; 80053; 85025

== ENCOUNTER 2021-07-05 03:36 | Emergency (ER) | payer OTHER, SELFPAY ==
[2021-07-05 03:44] VITALS: BP 120/68; PULSE 80; RESP 20; TEMP 36.6; O2SAT 100
--- NOTE | 2021-07-05 04:09 | ED.ALLEREA ---
HPI - Allergic Reaction General Chief complaint: Allergic Reaction Stated complaint: rash and hives Time Seen by Provider: 07/05/21 03:55 Source: patient Mode of arrival: Ambulatory History of Present Illness HPI narrative: Patient is a 31-year-old female who presents with rash. She said actually started on her leg 2 weeks ago while she was in [place]. The following day she flew home and it actually got worse. She has swelling in her hands and rash all over her body on this was on June 22. She was seen at the walk-in clinic she was put on 5 days of prednisone it is demented Irvingl. She said it went away however soon as she stopped the prednisone a came back. She went back to the walk-in clinic she was started on doxycycline for possible Lyme disease and another course of steroids. She has been on prednisone now for 2 days the rash is not getting any better. She woke up tonight her throat feels like it is tight and she is unable to swallow or breathe. And that her voice is hoarse. She has no numbness tingling swelling in her lips or tongue. She does not take any medications daily she denies anything new except for her trip to [place]. Related Data Previous Rx's Medication Instructions Recorded epinephrine 0.3 mg/0.3 mL 0.3 mg (0.3 mL) IM Q5-15M PRN #2 ea 07/05/21 injection, auto-injector epinephrine 0.3 mg/0.3 mL 0.3 mg (0.3 mL) IM Q5-15M PRN #2 ea 07/05/21 injection, auto-injector Allergies Allergy/AdvReac Type Severity Reaction Status Date / Time amoxicillin Allergy Mild Rash (was Verified 08/21/20 10:35 a baby) lactose AdvReac Mild GI cramping Verified 08/21/20 10:35 Review of Systems Review of Systems Narrative: GENERAL: Denies chills, fatigue, malaise, fever, sweats, travel HEENT: Denies sinus pain, ear pain, sore throat, difficulty swallowing, neck pain RESPIRATORY: Denies dyspnea, cough, wheezing, hemoptysis, sputum. CARDIOVASCULAR: Denies chest pain, palpitations, orthopnea, edema GASTROINTESTINAL: Denies nausea, vomiting, abdominal pain, diarrhea, constipation, melena. : Denies dysuria, frequency, incontinence, hematuria, urinary retention, flank pain. MUSCULOSKELETAL: Denies weakness, joint pain, or bony pain SKIN: See HPI NEUROLOGIC: Denies weakness, dizziness, headache, numbness, change in speech, confusion PSYCHIATRIC: No concerning psychosocial issues. 12 point review of systems is negative except for those stated above and HPI Patient History Medical History (Updated 07/05/21 @ 06:30 by Edna Reynaga DO) Former smoker Pilonidal cyst Pilonidal cyst Vaginal delivery Surgical History No pertinent past surgical history Social History marital status: household members: spouse, children and other occupational status: employed Smoking Status: Former smoker alcohol intake: never substance use type: does not use Smoking Status: Former smoker Substance Use Type: does not use Exam Initial Vital Signs Initial Vital Signs: Vital Signs Temperature 97.9 F 07/05/21 03:44 Pulse Rate 80 07/05/21 03:44 Respiratory Rate 20 07/05/21 03:44 Blood Pressure 120/68 07/05/21 03:44 Pulse Oximetry 100 07/05/21 03:44 GENERAL: Well-appearing, well-nourished and in no acute distress. HEENT: Head atraumatic,EOMI, pupils reactive, face symmetric, moist mucous membranes PHARYNX: No significant swelling of feel P a she actually has some spots her hard palate. No tongue swelling slightly hoarse voice no tonsillar swelling air exudates CARDIOVASCULAR: Regular rate and rhythm without murmurs, rubs or gallops. RESPIRATORY: Breath sounds equal bilaterally, no wheezes rales or rhonchi. EXTREMITIES: Normal range of motion, no clubbing or edema. Neurovascularly intact swelling of hands and feet. NEUROLOGICAL: Alert and oriented x4.Normal gait and speech SKIN: Hives all over body blanchable no target lesions Course Orders Ordered: Discontinued Medications Diphenhydramine HCl (Diphenhydramine 50 Mg/Ml Vial) 25 mg IV NOW ONE Stop: 07/05/21 04:10 Last Admin: 07/05/21 04:34 Dose: 25 mg Documented by: SOPHIA Epinephrine HCl (Epinephrine 1 Mg/Ml) 0.5 mg IM NOW ONE Stop: 07/05/21 04:10 Last Admin: 07/05/21 04:37 Dose: 0.5 mg Documented by: SOPHIA Famotidine (Famotidine 20 Mg/2 Ml Vial) 20 mg IV NOW THALIA Last Admin: 07/05/21 04:35 Dose: 20 mg Documented by: SOPHIA Methylprednisolone (Methylprednisolone 125 Mg/2 Ml Vial) 125 mg IV NOW ONE Stop: 07/05/21 04:10 Last Admin: 07/05/21 04:36 Dose: 125 mg Documented by: SOPHIA Vital Signs Vital signs: Vital Signs - 8 hr 07/05/21 03:44 Temperature 97.9 F Pulse Rate 80 Respiratory Rate 20 Blood Pressure 120/68 Pulse Oximetry 100 MDM - Allergic Reaction MDM Narrative Medical decision making narrative: Patient has had significant improvement with epi Benadryl Solu-Medrol and Pepcid. She has taken almost a full course of doxycycline as this may be reaction to doxycycline. Unclear at this time. At this time I recommend she finish her course of prednisone I will give her prescription for epinephrine as well. I do recommend allergy testing. Discharge Plan Departure Patient Disposition: Home Clinical Impression: Anaphylaxis Instructions: DI for Anaphylaxis Activity Restrictions/Additional Instructions: *You have been diagnosed with anaphylaxis *What to do: At this time I would strongly recommend allergy test. Your symptoms improved with allergic reaction medication is. You may be allergic to doxycycline. At this time I recommend he stop taking it. *Continue to take medications as directed Epinephrine, injected in the thigh is having severe throat swelling lip swelling--> SENT TO [facility] IN [place] Finish prednisone Stop doxycycline *Follow up with your primary care provider in 2-3 days or call [phone] *Return to ER if you should have recurrent throat swelling tongue swelling lip swelling worsening rash fever or any new, worsening or concerning symptoms Prescriptions: New epinephrine 0.3 mg/0.3 mL auto-injector 0.3 mg IM Q5-15M PRN (Reason: anaphylaxis) Qty: 2 0RF Rx Instructions: do not exceed 3 doses per episode epinephrine 0.3 mg/0.3 mL auto-injector 0.3 mg IM Q5-15M PRN (Reason: anaphylaxis) Qty: 2 0RF Rx Instructions: do not exceed 3 doses per episode Referrals: Dariusz Diallo ARNP [Primary Care Provider] -
[2021-07-05] MEDS: diphenhydrAMINE 50 MG/ML VIAL 25 MG IV (04:34)
[2021-07-05] MEDS: FAMOTIDINE 20 MG/2 ML VIAL IV (04:35)
[2021-07-05] MEDS: methylPREDNISolone 125 MG/2 ML VIAL IV (04:36)
[2021-07-05] MEDS: EPINEPHrine 1 MG/ML 0.5 MG IM (04:37)
[2021-07-05 06:59] VITALS: BP 114/67; PULSE 91; RESP 16; O2SAT 96
== END 2021-07-05 07:00 | disposition home or self-care (01) ==
PROVIDERS: Emergency Provider Emergency Medicine; PCP Registered Nurse
DX: T78.2XXA Anaphylactic shock, unspecified, initial encounter (principal)
CPT/HCPCS: 96372; 96374; 96375; 99283; 99284; J0171; J1200; J2930

== ENCOUNTER 2021-10-31 14:37 | Emergency (ER) | payer OTHER, SELFPAY ==
[2021-10-31 14:48] VITALS: BP 113/64; PULSE 91; RESP 15; TEMP 36.4; O2SAT 95; BMI 35.9
[2021-10-31] MEDS: predniSONE 20 MG TABLET 40 MG PO (14:57)
[2021-10-31] MEDS: diphenhydrAMINE 25 MG TABLET 50 MG PO (14:57)
--- NOTE | 2021-10-31 16:19 | ED.ALLEREA ---
HPI - Allergic Reaction <Mariella Moran, [facility] - Last Filed: 10/31/21 20:58> General Chief complaint: Allergic Reaction Stated complaint: MEDICINE ALLERGIC REACTION Time Seen by Provider: 10/31/21 16:19 Source: patient Mode of arrival: Ambulatory History of Present Illness HPI narrative: This is a 31-year-old female with a complicated history of urticaria as she has been seen Dermatology for the last 1.5 months and tried multiple medications for her chronic urticaria. She states that today she received her 2nd infusion of Xolair, she states that she developed eyes afterwards and sat there for 1.5 hours in observation to see if it got any worse. She left and while driving she developed swelling of her lips and came directly to the emergency department. In triage she received 40 mg of prednisone, 25 mg of Benadryl, and her symptoms started to improve. Patient endorses that she has been on multiple different medications for this, and has had extreme difficulty weaning off of corticosteroids. She has been on prednisone for at least 4 months and has tried to wean off numerous times. She was weaned off prior to cosmetic surgery which she had 1 week ago. She denies any complications, states that she had an upper blepharoplasty and breast lift. States that she did not have any urticarial symptoms afterwards. She had been taking cyclosporin for a few weeks to help her wean off of prednisone. She also has been on doxepin, hydroxychloroquine, montelukast among others. Only known allergy is amoxicillin and lactose, patient's food service steward fears that she has an autoimmune disorder. States that she is taking Zyrtec b.i.d. and is not currently on prednisone. She denies any wheezing or shortness of breath, denies any chest pain. Related Data Home Medications Medication Instructions Recorded Confirmed hydroxychloroquine 200 mg tablet 200 mg PO BID 08/01/21 10/19/21 prednisone 10 mg tablet 10 mg PO DAILY 08/01/21 10/19/21 cyclosporine 100 mg capsule 100 mg PO BID 09/18/21 10/19/21 doxepin 10 mg capsule 10 mg PO DAILY 09/18/21 10/19/21 montelukast 10 mg tablet 10 mg PO DAILY 09/18/21 10/19/21 Previous Rx's Medication Instructions Recorded epinephrine 0.3 mg/0.3 mL 0.3 mg (0.3 mL) IM Q5-15M PRN 07/05/21 injection, auto-injector anaphylaxis #2 ea famotidine 20 mg tablet (Pepcid) 20 mg PO DAILY #7 tabs 10/31/21 prednisone 5 mg tablet 5 mg PO DAILY #25 tabs 10/31/21 Allergies Allergy/AdvReac Type Severity Reaction Status Date / Time amoxicillin Allergy Mild Rash (was Verified 10/19/21 16:35 a baby) lactose AdvReac Mild GI cramping Verified 10/19/21 16:35 Review of Systems <CAROLYN Ramirez - Last Filed: 10/31/21 20:58> Review of Systems Narrative: Review of systems is negative for acute abnormalities unless otherwise noted in HPI Patient History <CAROLYN Ramirez - Last Filed: 10/31/21 20:58> Medical History Former smoker Pilonidal cyst Pilonidal cyst Vaginal delivery Surgical History No pertinent past surgical history Social History marital status: household members: spouse, children and other occupational status: employed Smoking Status: Current some day smoker alcohol intake: never substance use type: does not use Smoking Status: Current some day smoker alcohol intake frequency: holidays/special occasions only Substance Use Type: does not use Exam <CAROLYN Ramirez - Last Filed: 10/31/21 20:58> Narrative Exam Narrative: Reviewed vitals signs and nursing notes. General: cooperative, comfortable, in no acute distress, well groomed HEENT: symmetrical facial expressions, moist mucous membranes, lips with mild edema, no intraoral edema, posterior pharynx is normal, uvula is midline without edema Cardiovascular: regular rate and rhythm, no peripheral edema, warm extremities Respiratory: normal effort, able to speak in complete sentences, without wheezing, stridor, or abnormal breath sounds. No retractions or tachypnea. GI: abdomen soft, nontender to palpation, nondistended, without masses, rebound tenderness or exquisite tenderness with exam. MSK: moves all extremities, neurovascularly intact, no weak hives ness, normal tone Skin: brisk capillary refill, without pallor or erythema, without Neuro: normal speech and cognition, A&O x3, ambulatory, clear speech Psych: mental status is grossly normal, congruent mood, normal affect, pleasant and cooperative Initial Vital Signs Initial Vital Signs: Vital Signs Temperature 97.6 F 10/31/21 14:48 Pulse Rate 91 H 10/31/21 14:48 Respiratory Rate 15 10/31/21 14:48 Blood Pressure 113/64 10/31/21 14:48 Pulse Oximetry 95 10/31/21 14:48 Oxygen Delivery Method 10/31/21 14:48 <Edna Reynaga DO - Last Filed: 11/01/21 08:34> Initial Vital Signs Initial Vital Signs: Vital Signs Temperature 97.6 F 10/31/21 14:48 Pulse Rate 91 H 10/31/21 14:48 Respiratory Rate 15 10/31/21 14:48 Blood Pressure 113/64 10/31/21 14:48 Pulse Oximetry 95 10/31/21 14:48 Oxygen Delivery Method 10/31/21 14:48 Course <ED RamirezP - Last Filed: 10/31/21 20:58> Orders Ordered: Discontinued Medications Diphenhydramine HCl (Diphenhydramine 25 Mg Tablet) 50 mg PO NOW ONE Stop: 10/31/21 14:56 Last Admin: 10/31/21 14:57 Dose: 50 mg Documented By: ROGERS Famotidine (Famotidine 20 Mg/2 Ml Vial) 20 mg IV NOW THALIA Prednisone (Prednisone 20 Mg Tablet) 40 mg PO NOW ONE Stop: 10/31/21 14:56 Last Admin: 10/31/21 14:57 Dose: 40 mg Documented By: ROGERS Vital Signs Vital signs: Vital Signs - 8 hr 10/31/21 14:48 10/31/21 17:13 Temperature 97.6 F Pulse Rate 91 H 73 Respiratory Rate 15 14 Blood Pressure 113/64 118/70 Pulse Oximetry 95 97 Oxygen Delivery Method Room Air Room Air <Edan Reynaga DO - Last Filed: 11/01/21 08:34> Orders Ordered: Discontinued Medications Diphenhydramine HCl (Diphenhydramine 25 Mg Tablet) 50 mg PO NOW ONE Stop: 10/31/21 14:56 Last Admin: 10/31/21 14:57 Dose: 50 mg Documented By: ROGERS Famotidine (Famotidine 20 Mg/2 Ml Vial) 20 mg IV NOW THALIA Prednisone (Prednisone 20 Mg Tablet) 40 mg PO NOW ONE Stop: 10/31/21 14:56 Last Admin: 10/31/21 14:57 Dose: 40 mg Documented By: ROGERS Vital Signs Vital signs: Vital Signs - 8 hr 10/31/21 14:48 10/31/21 17:13 Temperature 97.6 F Pulse Rate 91 H 73 Respiratory Rate 15 14 Blood Pressure 113/64 118/70 Pulse Oximetry 95 97 Oxygen Delivery Method Room Air Room Air MDM - Allergic Reaction <Mariella Moran [facility] - Last Filed: 10/31/21 20:58> MDM Narrative Medical decision making narrative: This is a pleasant 31-year-old female with history of complex/complicated urticarial/hypersensitivity reactions with concern for autoimmune involvement who presents to the emergency department after she received a infusion of Xolair for her chronic urticaria with long-term corticosteroid use. m she states this is the 2nd time she received this infusion and afterwards she had an adverse drug reaction, states that she had some hives, and after waiting for 1.4 hours, when she left, her lips started to swell and she became worried about anaphylaxis and came directly to the emergency department. She was immediately given 40 mg of prednisone and 25 mg of Benadryl and the hives went away, the swelling started to go down over the next 2 hours while she was monitored in the emergency department. She was able to tolerate p.o. without any vomiting. She has EpiPen at home, she has a food service steward that she will follow-up with, I encouraged her to go back to her primary care provider for a recheck, and ask for referral to Rheumatology for workup and evaluation of her for autoimmune hypersensitivity. She was given strict return precautions for any worsening of this, she does not appear to have any intraoral involvement, uvula is midline without any edema, posterior pharynx is normal. Patient has clear speech without any difficulty swallowing. Patient is appropriate and amenable to discharge home. Vital signs are stable on repeat examination is unremarkable. Patient has been informed of results. Patient has been given strict return to ER precautions for any new or worsening symptoms. Patient understands to follow up closely with outpatient providers as instructed. Patient understands plan and agrees to discharge home. All questions and concerns answered at this time. Discharge Plan Departure Patient Disposition: Home Clinical Impression: Angioedema Allergic reaction Qualifiers: Encounter type: initial encounter Qualified Code(s): T78.40XA - Allergy, unspecified, initial encounter Instructions: DI for Anaphylaxis, DI for Hives, DI for Adverse Drug Reaction -- Allergic Activity Restrictions/Additional Instructions: *You have been diagnosed with an allergic reaction to the Xolair injection. You may have hypersensitivity reaction to this again which could be much worse, please avoid this in the future. Please keep your EpiPen with you at all times, continue with your urticaria medications and add prednisone for the next 1-8 days as needed. You received 40 mg today, please take 30 mg tomorrow, 20 mg today after, 10 mg after that, 5, and 2.5. See if this works okay for you and follow-up with Geovany Strickland for a referral to Rheumatology. She may be able to send you to another provider as needed. Thank you for trusting us with your care, I hope you feel better soon. I have sent prednisone tabs to the pharmacy for you to picker tender helper, please ensure you are taking Pepcid daily as well. *What to do: *Please continue to take your regular medications as directed. [ x] New medication prescriptions sent to your pharmacy: [ ] [ ] New medication written as a paper prescription [ ] No new medications given *Please follow up with your primary care provider in 2-3 days, call for an appointment. Let them know you were seen in the Emergency Department and that we asked that you be seen for follow-up. We will electronically transmit a record of today's note if your PCP is in our system *If you do not have a primary care provider please contact [phone] to establish care with one of the [facility] primary care providers. *Return to Emergency Department if you should have any new, worsening, or concerning symptoms, such as [fever greater than 101F, chills, worsening pain, persistent vomiting or other bothersome symptoms]. Prescriptions: New prednisone 5 mg tablet 5 mg PO DAILY Qty: 25 0RF Rx Instructions: 30 mg, then 20, then 10, then 5, then 2.5 famotidine [Pepcid] 20 mg tablet 20 mg PO DAILY Qty: 7 0RF No Action doxepin 10 mg capsule 10 mg PO DAILY montelukast 10 mg tablet 10 mg PO DAILY cyclosporine 100 mg capsule 100 mg PO BID Rx Instructions: 2 capsule in the AM and 1 capsule in the PM hydroxychloroquine 200 mg tablet 200 mg PO BID Label Comments: take 1 tablet by mouth twice a day prednisone 10 mg tablet 10 mg PO DAILY Label Comments: TAKE 1 TABLET BY MOUTH IN THE MORNING FOR 7 DAYS. REPEAT IF RASH RETURNS epinephrine 0.3 mg/0.3 mL auto-injector 0.3 mg IM Q5-15M PRN (Reason: anaphylaxis) Qty: 2 0RF Rx Instructions: do not exceed 3 doses per episode Referrals: [facility] Rheum/Arthritis [Outside] Geovany Strickland ARNP [Primary Care Provider] - Babatunde Martinez MD [Non-Staff] - Bret Hernández MD [Non-Staff] - Visit Report Forms: Patient Portal/API <Edna Reynaga DO - Last Filed: 11/01/21 08:34> Cosign ED Attending Cosignature Attestation: I was immediately available in the department for consultation. Documentation has been reviewed. I agree with assessment and plan.
[2021-10-31 17:13] VITALS: BP 118/70; PULSE 73; RESP 14; O2SAT 97
--- NOTE | 2021-10-31 17:25 | PC.NURSE ---
Pt without respiratory distress. Lips swollen. Managing secretions and breathing without difficulty. Recently had Xolair injection.
== END 2021-10-31 17:27 | disposition home or self-care (01) ==
PROVIDERS: Emergency Provider Nurse Practitioner Critical Care Medicine; PCP Registered Nurse Diabetes Educator
DX: T78.3XXA Angioneurotic edema, initial encounter (principal); T78.40XA Allergy, unspecified, initial encounter
CPT/HCPCS: 36415; 99283

== ENCOUNTER → 2021-11-19 16:06 | Outpatient (CLI) | payer OTHER, SELFPAY ==
[2021-11-19 17:47] LABS: Add Manual Diff / Slide Review NO; Basophils Absolute Auto 0 /uL (0-100); Basophils Percent Auto 0.1 % (0-2); Eosinophils Absolute Auto 300 /uL (0-450); Eosinophils Percent Auto 3.3 % (2-4); Hematocrit 34.3 % (36-46); Hemoglobin 12.1 g/dL (12.0-16.0); Lymphocytes Absolute Auto 2200 /uL (1100-4500); Lymphocytes Percent Auto 28.4 % (25-40); Mean Corpuscular HGB Conc 35.4 % (30-36); Mean Corpuscular Hemoglobin 30.1 PG (26-34); Monocytes Absolute Auto 600 /uL (0-900); Monocytes Percent Auto 7.3 % (3-14); Neutrophils Absolute Auto 4600 /uL (1500-7000); Neutrophils Percent Auto 60.9 % (50-75); Platelet Count 293 X10^3/uL (150-400); Red Blood Cell Count 4.03 X10^6/uL (4.0-5.2); Red Cell Distribution Width 13.8 % (11.6-14.8); White Blood Cell Count 7.6 X10^3/uL (4.5-11.0)
[2021-11-19 18:22] LABS: Alanine Aminotransferase 22 IU/L (<35); Albumin 4.4 g/dL (3.5-5.0); Albumin Globulin Ratio 1.4 (1.0-2.8); Alkaline Phosphatase 48 U/L (38-126); Aspartate Aminotransferase 21 IU/L (14-36); BUN Creatinine Ratio 38.2 (6-22); Bilirubin Total 0.4 mg/dL (0.2-1.3); Blood Urea Nitrogen 26 mg/dL (7-17); C-Reactive Protein Quant 0.5 mg/dL (<1.0); Calcium 9.1 mg/dL (8.4-10.2); Carbon Dioxide 23 mmol/L (22-32); Chloride 107 mmol/L (98-107); Estimated Glomerular Filt Rate > 60 mL/min (>60); Globulin 3.1 g/dL (1.7-4.1); Glucose 94 mg/dL (70-100); HEMOLYSIS < 15 (0-50); Potassium 3.8 mmol/L (3.4-5.1); Sodium 141 mmol/L (137-145); Total Protein 7.5 g/dL (6.3-8.2)
[2021-11-19 18:33] LABS: Rheumatoid Factor < 8.6 IU/mL (<12.0)
[2021-11-19 18:35] LABS: Erythrocyte Sedimentation Rate 8 MM/HR (0-20)
[2021-11-21 20:47] LABS: CCP Antibodies IgG/IgA 7 units (0-19)
[2021-11-22 06:22] LABS: Alder IgE <0.10 kU/L (Class 0); Alternaria alternata IgE <0.10 kU/L (Class 0); Aspergillus fumigatus IgE <0.10 kU/L (Class 0); Box Elder IgE <0.10 kU/L (Class 0); Cladosporium herbarum IgE <0.10 kU/L (Class 0); Cockroach IgE <0.10 kU/L (Class 0); Cottonwood IgE <0.10 kU/L (Class 0); D farinae IgE <0.10 kU/L (Class 0); D pteronyssinus IgE 0.13 kU/L (Class 0/I); Dog Dander IgE <0.10 kU/L (Class 0); Elm Tree IgE <0.10 kU/L (Class 0); Immunoglobulin E 42 IU/mL (6-495); Mountain Cedar IgE <0.10 kU/L (Class 0); Mouse Urine Proteins IgE <0.10 kU/L (Class 0); Nettle IgE <0.10 kU/L (Class 0); Oak Tree IgE <0.10 kU/L (Class 0); Penicillium chrysogen IgE <0.10 kU/L (Class 0); Pigweed, Common IgE <0.10 kU/L (Class 0); Ragweed, Short <0.10 kU/L (Class 0); Sheep Sorrel IgE <0.10 kU/L (Class 0); Silver Birch IgE <0.10 kU/L (Class 0); Timothy Grass IgE <0.10 kU/L (Class 0); Walnut Allery IgE < 0.10 kU/L (Class 0); White ash IgE <0.10 kU/L (Class 0)
[2021-11-22 14:51] LABS: ANA Screen, IFA Negative (.); Almond IgE <0.10 kU/L (Class 0); Cashew Nut IgE <0.10 kU/L (Class 0); Codfish Allergy IgE < 0.10 kU/L (Class 0); Egg White IgE <0.10 kU/L (Class 0); Hazelnut IgE <0.10 kU/L (Class 0); Milk IgE <0.10 kU/L (Class 0); Peanut IgE <0.10 kU/L (Class 0); Salmon Allergy IgE < 0.10 kU/L (Class 0); Scallop Allergy IgE < 0.10 kU/L (Class 0); Sesame seed Allergy IgE < 0.10 kU/L (Class 0); Shrimp IgE <0.10 kU/L (Class 0); Soybean IgE <0.10 kU/L (Class 0); Tuna Allergy IgE < 0.10 kU/L (Class 0); Walnut IgE <0.10 kU/L (Class 0); Wheat Allergy IgE < 0.10 kU/L (Class 0)
[2021-11-23 11:49] LABS: Cat Dander IgE <0.10
== END ==
PROVIDERS: PCP Registered Nurse Diabetes Educator; Referring Provider Registered Nurse Diabetes Educator; Visit Provider Registered Nurse Diabetes Educator
DX: L50.8 Other urticaria (principal)
CPT/HCPCS: 36415; 80053; 82785; 85025; 85651; 86003; 86038; 86140; 86200; 86430

== ENCOUNTER → 2022-02-08 19:03 | Outpatient (CLI) | payer OTHER, SELFPAY | PROVIDERS: PCP Registered Nurse Diabetes Educator; Visit Provider Nurse Practitioner Family | DX: J02.9 Acute pharyngitis, unspecified (principal) | CPT/HCPCS: 87070 ==